=== PATIENT | female | born 1965 | race Caucasian/White ===

== ENCOUNTER 2017-01-21 13:33 | Emergency (ER) | payer OTHER ==
[2017-01-21 13:45] VITALS: TEMP 99.1; BMI 29.0
--- NOTE | 2017-01-21 14:03 | PDOC ---
History of Present Illness - General Chief Complaint: Pain Stated Complaint: LEFT AXILLA PAIN INTO BACK Time Seen by Provider: 01/21/17 13:36 History Source: Patient Exam Limitations: No Limitations - History of Present Illness Initial Comments: 01/21/17 13:58 51-year-old female with no past medical history here today complaining of left sided lateral chest wall pain. Patient states symptoms started approximately 2 months ago describes a pulling or tightening sensation in the left axillary region or lateral chest wall can really pinpoint any certain activities which makes this better or worse but states that sometimes movement will exasperated. Denies feeling short of breath, denies pleuritic type pain no fevers chills or cough. No nausea or vomiting. No prior cardiac workup. No family history of heart disease. No associated leg swelling, but does report recently having had cramps in the right hip a few weeks back no recent travel no history of DVT or PE. Has had a normal mammogram and did have similar pain at that time 1 about one year ago which was negative. Past History - Past Medical History Allergies/Adverse Reactions: Allergies Allergy/AdvReac Type Severity Reaction Status Date / Time No Known Allergies Allergy Unverified 01/21/17 13:35 Home Medications: Ambulatory Orders Nabumetone [Relafen -] 500 mg PO DAILY 01/21/17 COPD: No - Suicide/Smoking/Psychosocial Hx Smoking History: Never smoked Information on smoking cessation initiated: No Hx Alcohol Use: Yes (SOCIAL) Drug/Substance Use Hx: No Substance Use Type: Alcohol Review of Systems - Review of Systems Constitutional: No: Chills, Diaphoresis, Fever, Other Respiratory: No: Cough, Orthopnea Cardiac (ROS): Yes: Chest Pain ABD/GI: No: Abdominal Distended : No: Burning All Other Systems: Reviewed and Negative *Physical Exam - Vital Signs Last Vital Signs Temp Pulse Resp BP Pulse Ox 99.1 F 76 20 126/75 100 01/21/17 13:35 01/21/17 13:35 01/21/17 13:35 01/21/17 13:35 01/21/17 13:35 - Physical Exam Comments: 01/21/17 14:00 No acute distress awake alert. Lungs are clear bilaterally no wheezes or crackles. Left lateral rib tenderness no palpable crepitus. No palpable axillary lymphadenopathy. Lungs are clear bilaterally. Heart is regular no murmurs rubs or gallops. Abdomen soft and nontender. Legs are warm well perfused without edema no calf tenderness. Skin is warm and dry no rash. Patient 's awake and alert and oriented 3 gait is normal General Appearance: No: Appropriately Dressed Heart Score/ECG Review - History History: Slightly suspicious - Electrocardiogram EKG: Normal - Age Age: 45-65 - Risk Factors Risk Factors Heart Score: No Hx Hypertension, No Hx Diabetes, No Smoking History , No Positive family hx of cardiac disease Based on the list above the patient has:: 1-2 risk factors - Troponin Troponin: </= normal limit - Score Heart Score - Total: 2 #1 General ECG Interpretation: Sinus Rhythm, Normal Rate (71), Normal Intervals, No acute ischemic changes ED Treatment Course - LABORATORY CBC & Chemistry Diagram: 01/21/17 14:18 01/21/17 14:18 - RADIOLOGY Radiology Studies Ordered: Category Date Time Status CHEST PA & LAT [RAD] Stat Radiology 01/21/17 13:43 Ordered Medical Decision Making - Medical Decision Making 01/21/17 14:02 51-year-old chest wall pain mild reproduction Of tenderness on exam. Differential: Chest wall pain, muscle strain, infection, rib abnormality, ACS, PE Plan chest x-ray, EKG, aspirin labs including troponin and d-dimer shrill PE likely outpatient follow-up. Patient has had symptoms for 2 months should she primary negative unlikely follow-up outpatient for an outpatient stress test for her primary care doctor. 01/21/17 18:56 Patient's labs are unremarkable elevated chest negative. Patient has reproducible chest wall pain we'll discharge home with a referral for outpatient cardiology follow-up patient has low risk factors for heart disease encouraged to return for any recurrent symptoms x-ray was normal *DC/Admit/Observation/Transfer Diagnosis at time of Disposition: Costochondritis - Discharge Dispostion Disposition: HOME Condition at time of disposition: Improved Admit: No - Referrals Referrals: Sudheer Jackson MD [Staff Physician] - - Patient Instructions Printed Discharge Instructions: DI for Chest Pain Additional Instructions: Your tests are negative today for heart attack. Your chest x-ray is normal. Your CAT scan of the chest is negative for any blood clots does show a small nodule which is nonspecific and should be followed up within 6 months please discussed your primary care doctor. For your pain he can take Motrin 600 mg every 8 hours as needed. For worsening symptoms shortness of breath nausea vomiting or any concerns he may return for repeat evaluation emergency room he should also follow up with a gear machine operator general to discuss the possibility of outpatient heart stress testing he can obtain a referral from your primary doctor or see information for Dr. jackson. Please call to schedule - Post Discharge Activity
[2017-01-21] MEDS ORDERED: ASPIRIN 325 MG TABLET PO ONE (14:04)
[2017-01-21] MEDS ORDERED: ASPIRIN 325 MG TABLET ONE (14:09)
[2017-01-21 14:22] LABS: BASOPHIL 3.1 % (0-2.0); EOSINOPHIL 3.9 % (0-4.5); MCH 30.3 pg (25.7-33.7); MCHC 33.5 g/dl (32.0-36.0); MEAN CELL VOLUME 90.6 fl (80-96); MEAN PLT VOLUME 9.4 fl (7.5-11.1); NEUTROPHILS 52.7 % (42.8-82.8); PLATELET COUNT 266 K/MM3 (134-434); RDW 12.7 % (11.6-15.6); WHITE BLOOD COUNT 9.2 K/mm3 (4.0-10.8)
[2017-01-21 15:22] LABS: ALBUMIN 4.2 g/dl (3.5-5.0); ALK PHOS 63 U/L (32-92); ANION GAP 9 (8-16); BILIRUBIN,TOTAL 0.8 mg/dl (0.2-1.0); CO2 27 mmol/L (22-28); CREATININE 0.7 mg/dl (0.6-1.3); GLUCOSE,RANDOM 90 mg/dl (74-106); SGOT/AST 21 U/L (10-42); SGPT/ALT 27 U/L (10-40); TOT PROT 7.3 g/dl (6.4-8.3)
[2017-01-21 17:19] VITALS: BP 119/71; PULSE 71
--- NOTE | 2017-01-22 20:20 | EKG ---
Test Reason : Blood Pressure : / mmHG Vent. Rate : 071 BPM Atrial Rate : 071 BPM P-R Int : 164 ms QRS Dur : 092 ms QT Int : 394 ms P-R-T Axes : 064 063 047 degrees QTc Int : 428 ms NORMAL SINUS RHYTHM NORMAL ECG NO PREVIOUS ECGS AVAILABLE Confirmed by CARMEN ODOM MD ([id number]) on 01/22/2017 8:20:13 PM Referred By: MOLLY MORRIS Confirmed By:CARMEN ODOM MD
== END 2017-01-21 19:11 | disposition home or self-care (01) ==
LOC: FER 13:33
DX: M94.0 Chondrocostal junction syndrome [Tietze] (principal)
CPT/HCPCS: 36415; 71020-TC; 71275-TC; 80053; 84484; 85025; 85379; 93005; 99283-25

== ENCOUNTER 2019-03-23 17:55 | Emergency (ER) | payer OTHER ==
[2019-03-23 18:15] VITALS: TEMP 97.9; BMI 31.4
--- NOTE | 2019-03-23 18:59 | PDOC ---
History of Present Illness - General Chief Complaint: Allergic Reaction Stated Complaint: ALLERGIC REACTION Time Seen by Provider: 03/23/19 18:35 - History of Present Illness Initial Comments: 03/23/19 18:53 53 years old past medical history significant for recent glaucoma surgery macular surgery/retinal detachment surgery on steroid and antibiotic eyedrops with residual swelling to eyelid presents to the ED with rash to chest and subjective feeling of shortness of breath since this afternoon. Symptoms are mild to moderate persistent constant no exacerbating or alleviating factors Patient was seen by her partition assembler today was in the process of changing 2 of her medications when this rash developed to her chest and was advised to come to the emergency department Past History - Past Medical History Allergies/Adverse Reactions: Allergies Allergy/AdvReac Type Severity Reaction Status Date / Time No Known Allergies Allergy Verified 03/23/19 18:01 Home Medications: Ambulatory Orders Ondansetron HCl [Zofran] 8 mg PO BID 03/23/19 Polyvinyl Alcohol/Povidone/Pf [Refresh Classic Eye Drops] 1 each OP DAILY Prednisolone 1% Ophthalmic [Pred Forte 1% -] 1 drop OS QID 03/23/19 Ropinirole HCl 0.5 mg PO DAILY 03/23/19 Tobramycin 0.3% Ophth Soln [Tobrex *Ophthalmic Solution*] 1 drop OS QID COPD: No Diabetes: No HTN: No - Psycho Social/Smoking Cessation Hx Smoking History: Never smoked Have you smoked in the past 12 months: No Information on smoking cessation initiated: No Hx Alcohol Use: (occasional) Drug/Substance Use Hx: No Substance Use Type: Alcohol Review of Systems - Review of Systems Comments:: 03/23/19 19:08 ROS: A complete review of 10 out of 10 review of systems is taken and is negative apart from what is previously mentioned below and in the HPI. *Physical Exam - Vital Signs Last Vital Signs Temp Pulse Resp BP Pulse Ox 97.9 F 97 H 18 145/94 98 03/23/19 17:55 03/23/19 17:55 03/23/19 17:55 03/23/19 17:55 03/23/19 17:55 Medical Decision Making - Medical Decision Making 03/23/19 19:13 History and examination consistent with a contact dermatitis likely from the vinyl padding that she was leaning on with her chest no new eye complaints Case discussed with patient's partition assembler p.o. Benadryl safe to give her 2 days okay to use topical hydrocortisone cream to chest Follow-up as needed Well-appearing no apparent distress lungs are clear no evidence of systemic allergic reaction Findings, the need for follow-up and strict return instructions discussed with patient. Discharge - Discharge Information Problems reviewed: Yes Clinical Impression/Diagnosis: Contact dermatitis Qualifiers: Contact dermatitis type: unspecified Contact dermatitis trigger: other trigger Qualified Code(s): L25.8 - Unspecified contact dermatitis due to other agents Condition: Stable - Admission No - Follow up/Referral - Patient Discharge Instructions Patient Printed Discharge Instructions: DI for Adverse Drug Reaction -- Allergic Additional Instructions: Take 25 mg of Benadryl every 4-6 hours as needed for 2 days. Topical steroid cream to rash on chest twice a day for 3 days. Follow-up with your primary care provider. Return to ED immediately for any severe worsening shortness of breath tongue swelling throat closing or for any concerns. - Post Discharge Activity
[2019-03-23] MEDS ORDERED: HYDROCORTISONE 1% TOPICAL CREAM 30 GM TUBE TP ONE (19:12)
[2019-03-23] MEDS ORDERED: diphenhydrAMINE HCL 25 MG CAPSULE (FP) PO ONE ×2 (19:12→19:19)
[2019-03-23 19:43] VITALS: BP 136/86; PULSE 87
== END 2019-03-23 19:35 | disposition home or self-care (01) ==
LOC: FER 17:55
DX: L25.8 Unspecified contact dermatitis due to other agents (principal)
CPT/HCPCS: 99283-25